=== PATIENT | female | born 1985 | race Caucasian/White ===

== ENCOUNTER 2017-11-17 06:22 | Emergency (ER) | payer MEDICAID, SELFPAY ==
[2017-11-17 06:22] VITALS: BP 121/67; PULSE 98; RESP 22; TEMP 37; O2SAT 100; BMI 24.1
--- NOTE | 2017-11-17 06:55 | US_ITS ---
STUDY: ABDOMINAL ULTRASOUND - RIGHT UPPER QUADRANT REASON FOR VISIT: Female, 31 years old. Abdominal pain TECHNIQUE: Ultrasound evaluation of the right upper quadrant was performed with real-time and static paul-scale imaging. TECHNICAL QUALITY: Adequate. COMPARISON: CT abdomen and pelvis 06/17/2012. FINDINGS: Liver: The liver measures 17.6 cm. There is normal echogenicity of the liver. The bile ducts are within normal limits. There is hepatic color flow. The direction of portal flow is hepatopetal. There is no demonstrated mass lesion. Gallbladder: The gallbladder is moderately distended with a length of 11.6 cm. Diameter of approximately 3 cm. The gallbladder wall measures 2.6 mm. There is a negative sonographic Mae's sign. There is no pericholecystic fluid. Multilevel calculi. 2 gallstones in the fundus. Another in the gallbladder neck. Common Bile Duct (C.B.D.): The common bile duct measures 6.3 mm. Pancreas: Normal size of the head, body and tail of the pancreas. There is normal echogenicity of the pancreas. There is no demonstrated pancreatic mass or cyst. Right Kidney: Normal size of the right kidney. The right kidney measures 10.0 x 5.9 x 5.1 cm. Normal renal cortex. The right cortex measures 1.2 cm. There is no demonstrated renal mass or cyst. There is no right hydronephrosis. US/Gallbladder IMPRESSION: Cholelithiasis with mild distention of the gallbladder, but without Positive Mae sign and without gallbladder wall thickening or pericholecystic fluid. Nondilated intrahepatic biliary tree and common bile duct. No evidence of choledocholithiasis. Electronically Signed: Dave Gilbert, at 8:29 EDT Tel , Service support ,
--- NOTE | 2017-11-17 06:56 | ED.VISSUMM ---
- ER Visit Summary Date of Service: 11/17/17 The patient's gallbladder ultrasound returned which shows cholelithiasis without pericholecystic fluid or gallbladder wall thickening. No ductal dilatation. Patient will be referred to general surgery. Clinical impression 1. Biliary colic This note was generated with [employer] dictation software. It may contain incorrect words, spelling, and punctuation that were not noted in review of the chart prior to signing <Humberto Quesada - Last Filed: 11/17/17 08:35> - ER Visit Summary Date of Service: 11/17/17 Chief Complaint: Abdominal pain with vomiting History of Present Illness: The patient is a 31 F who presents with abdominal pain, now with vomiting. Patient states she has been having upper abdominal pain intermittently for years, worse with spicy meals, fatty meals and stress. This morning she woke up vomiting. This is a new symptom. She denies diarrhea, fever, chest pain, shortness of breath. She does complain of right shoulder pain. No medical history. Patient does not have a primary care doctor. She smokes tobacco. No allergies. Denies . Last menstrual period was 2 days ago. Physical Examination: Vital signs: afebrile, hemodynamically stable, no hypoxia on room air General: well nourished, well developed, in no distress Skin: warm, dry, no rash, no pallor HEENT: normocephalic and atraumatic; PERRL, EOMI, moist mucous membranes Cardiovascular: regular rate and rhythm without murmurs, no peripheral edema, 2+ pulses all distal extremities Respiratory: No increased work of breathing, lungs are clear to auscultation bilaterally, no rales, rhonchi or wheezing Abdominal: Abdomen is soft, tender in epigastrium and right upper quadrant with normoactive bowel sounds, no guarding or rebound, no masses MSK: Moves all extremities, no deformities, normal strength Neuro: Awake and alert, oriented ?4. No facial droop, sensation and motor function intact and symmetric Test Results: Abnormal Lab Results 11/17/17 11/17/17 11/17/17 06:30 06:30 07:00 WBC 8.9 RBC 4.80 Hgb 14.7 Hct 44.6 MCV 92.9 MCH 30.6 MCHC 33.0 RDW 13.1 RDW Differential 44.5 H Plt Count 217 MPV 10.0 Immature Gran % (Auto) 0.100 Neut % (Auto) 66.5 Lymph % (Auto) 25.3 [place] % (Auto) 5.8 Eos % (Auto) 2.1 Baso % (Auto) 0.2 Absolute Neuts (auto) 5.9 Absolute Lymphs (auto) 2.25 Total Counted Not Reportable Sodium 140 Potassium 3.7 Chloride 107 Carbon Dioxide 28.0 Anion Gap 5 BUN 8 Creatinine 0.86 Estim Creat Clear Calc 91.33 Est GFR (MDRD) Af Amer 97 Est GFR (MDRD) Non-Af 81 BUN/Creatinine Ratio 9.3 L Glucose 101 Calcium 8.7 Total Bilirubin 0.20 AST 19 ALT 18 Alkaline Phosphatase 88 Total Protein 7.2 Albumin 3.7 Globulin 3.5 Albumin/Globulin Ratio 1.1 Lipase 531 H Urine Color Yellow Urine Clarity Clear Urine pH 6.5 Ur Specific [place] 1.010 Urine Protein Negative Urine Glucose (UA) Normal Urine Ketones Negative Urine Occult Blood 25 H Urine Nitrite Negative Urine Bilirubin Negative Urine Urobilinogen Normal Ur Leukocyte Esterase 100 H Urine RBC 0-5 SEEN Urine WBC 0-5 SEEN Ur Squamous Epith Cells 5-10 SEEN Urine Bacteria 0 SEEN Urine Mucus 0 SEEN Urine Test 11/17/17 07:00 WBC RBC Hgb Hct MCV MCH MCHC RDW RDW Differential Plt Count MPV Immature Gran % (Auto) Neut % (Auto) Lymph % (Auto) [place] % (Auto) Eos % (Auto) Baso % (Auto) Absolute Neuts (auto) Absolute Lymphs (auto) Total Counted Sodium Potassium Chloride Carbon Dioxide Anion Gap BUN Creatinine Estim Creat Clear Calc Est GFR (MDRD) Af Amer Est GFR (MDRD) Non-Af BUN/Creatinine Ratio Glucose Calcium Total Bilirubin AST ALT Alkaline Phosphatase Total Protein Albumin Globulin Albumin/Globulin Ratio Lipase Urine Color Urine Clarity Urine pH Ur Specific [place] Urine Protein Urine Glucose (UA) Urine Ketones Urine Occult Blood Urine Nitrite Urine Bilirubin Urine Urobilinogen Ur Leukocyte Esterase Urine RBC Urine WBC Ur Squamous Epith Cells Urine Bacteria Urine Mucus Urine Test Negative Emergency Department Course and Treatment: Given the epigastric and right upper quadrant pain with referred pain to the right shoulder which may indicate diaphragmatic irritation, along with the new symptom of vomiting, workup was performed to evaluate for possible cholecystitis. differential also includes biliary colic, gastritis, peptic ulcer disease, IBS, renal pathology. Labs showed no leukocytosis, negative , no electrolyte derangements. No hepatic derangements. Lipase was mildly elevated but not even twice the upper limit of normal. negative. Urinalysis negative for infection. Patient received GI cocktail and zofran for symptomatic relief. Treatment Plan: RUQ US in progress and will be f/u by day physician. Suspect pt's sx are due to biliary colic. If RUQ US shows cholecystitis, acute surg c/s will be obtained. Otherwise pt will f/u with surgery outpatient to discuss elective cholecystectomy for sx relief. Disposition: pending US results Impression: [] This note was generated with [employer] dictation software. It may contain incorrect words, spelling, and punctuation that were not noted in review of the chart prior to signing <Lidya Ojeda - Last Filed: 11/18/17 20:03> ED Disposition <Humberto Quesada - Last Filed: 11/17/17 08:35> <Lidya Ojeda - Last Filed: 11/18/17 20:03> - Plan for ED Patient: Disposition: Home or Assisted Living Chief Complaint: Abd Pain Instructions: ED Abdominal Pain Gallstone Poss Prescriptions: Ondansetron [Zofran Odt] 4 mg PO TID PRN #15 tab.rapdis PRN Reason: Nausea Referrals: Peggy Osman MD [STAFF PHYSICIAN] - As Needed (gallstones, intermittent biliary colic) Mike Velazquez DO [STAFF PHYSICIAN] - As soon as possible Care Physician,No Primary [Primary Care Provider] - Additional Instructions: Please follow up with the primary care doctor on this paperwork or with the primary care doctor of your choice to establish with a physician and for reevaluation of your abdominal pain. You may use the zofran as needed for nausea. Use over the counter pain medication of your choice to help with pain. Follow-up with the surgeon if your abdominal pain continues to discuss whether you need to have your gallbladder removed. If you have any worsening of your condition or any new concerning symptoms, please return immediately to the emergency department for another evaluation.
[2017-11-17 07:04] LABS: Bacteria 0 SEEN /hpf (None Seen); Mucous, Urine 0 SEEN /hpf (<or=2+)
[2017-11-17 07:11] LABS: Absolute Lymphocyte Count 2.25 X10^3/ul (0.83-4.51); Absolute Neutrophil Count 5.9 X10^3/uL (2.0-7.7); Basophil# 0.02 X10^3/uL; Basophil% 0.2 % (0-1); Eosinophil# 0.19 X10^3/uL; Eosinophils% 2.1 % (0-5); Hematocrit 44.6 % (37-47); Hemoglobin 14.7 g/dl (12.0-15.0); Lymphocyte # 2.25 X10^3/ul (4.0); Lymphocyte % 25.3 % (19-41); Mean Corpuscular Hgb 30.6 pg (27.0-32.0); Mean Corpuscular Volume 92.9 fL (81-99); Monocyte# 0.52 X10^3/uL; Monocyte% 5.8 % (0-10); Neutrophil # 5.92 X10^3/uL (2.7-7.7); Neutrophil % 66.5 % (47-70); Platelet Count 217 K/mm3 (150-450); RBC Distribution Width CV 13.1 % (11.6-14.6); RBC Distribution Width SD 44.5 fl (35.1-43.9); White Blood Count 8.9 K/mm3 (4.4-11.0)
[2017-11-17] MEDS: Ondansetron 4 MG/2 ML Vial IV (07:11)
[2017-11-17] MEDS: 0.9% Normal Saline 1,000 ML 1000 ML IV (07:11)
[2017-11-17 07:12] LABS: POSITIVE COUNT NO; POSITIVE DIFFERENTIAL NO; POSITIVE MORPHOLOGY NO
[2017-11-17 07:18] LABS: ALB/GLOB Ratio 1.1 RATIO (0.9-2.4); AST(SGOT) 19 U/L (15-37); Alanine Aminotransfer ALT/SGPT 18 U/L (13-56); Albumin, Serum 3.7 g/dL (3.2-5.0); Alkaline Phosphatase 88 U/L (45-117); Anion Gap 5 (5-15); BUN 8 mg/dL (7-18); BUN/Creat Ratio 9.3 RATIO (10-20); Calcium,Total 8.7 mg/dL (8.5-10.1); Chloride 107 mmol/L (98-107); Creatinine, Serum 0.86 mg/dL (0.55-1.02); EST Glomerular Filtration Rate 81 mL/min (>60); Est Glom Filt Rate - Afr Amer 97 mL/min (>60); Estimated Creatinine Clearance 91.33 ml/min; Globulin 3.5 g/dL (2.2-4.2); Glucose 101 mg/dL (74-106); Lipase 531 U/L (73-393); Potassium 3.7 mmol/L (3.5-5.1); Protein, Total 7.2 g/dL (6.4-8.2); Sodium Level 140 mmol/L (136-145)
[2017-11-17 07:21] LABS: Color, Urine Yellow (Yellow); Glucose, Dipstick Normal (Normal); Ketone-Dipstick Negative (Negative); Leukocyte Esterase-Dipstick 100 /ul (Negative); Nitrite-Dipstick Negative (Negative); Occult Blood-Urine 25 /ul (Negative); Protein-Dipstick Negative (Negative); Urine Bilirubin Dipstick Negative (Negative); Urine Clarity Clear (Clear); Urine Urobilinogen Normal (Normal); Urine pH 6.5 (5.0 - 8.0)
[2017-11-17 07:31] LABS: Internal QC Validated? YES +Cl - CLEAR BKGD; Pregnancy, Urine Negative Negative
[2017-11-17 07:48] LABS: Red Blood Cells-Urine 0-5 SEEN /hpf (0-5); Squamous Epithelial Cells - UA 5-10 SEEN /hpf (5-10); White Blood Cells 0-5 SEEN /hpf (0-5)
--- NOTE | 2017-11-17 08:04 | ED.DEP ---
ED Disposition - Plan for ED Patient: Disposition: Home or Assisted Living Chief Complaint: Abd Pain Instructions: ED Abdominal Pain Gallstone Poss Prescriptions: Ondansetron [Zofran Odt] 4 mg PO TID PRN #15 tab.rapdis PRN Reason: Nausea Referrals: Mike Velazquez DO [STAFF PHYSICIAN] - As soon as possible Care Physician,No Primary [Primary Care Provider] - Peggy Osman MD [STAFF PHYSICIAN] - As Needed (gallstones, intermittent biliary colic) Additional Instructions: Please follow up with the primary care doctor on this paperwork or with the primary care doctor of your choice to establish with a physician and for reevaluation of your abdominal pain. You may use the zofran as needed for nausea. Use over the counter pain medication of your choice to help with pain. Follow-up with the surgeon if your abdominal pain continues to discuss whether you need to have your gallbladder removed. If you have any worsening of your condition or any new concerning symptoms, please return immediately to the emergency department for another evaluation.
[2017-11-17 08:31] VITALS: BP 121/74; PULSE 74; RESP 18; O2SAT 100
[2017-11-17 08:40] VITALS: BP 109/77; PULSE 62; RESP 15; O2SAT 98
== END 2017-11-17 08:40 | disposition home or self-care (01) ==
PROVIDERS: Emergency Provider Emergency Medicine
DX: K80.50 Calculus of bile duct without cholangitis or cholecystitis without obstruction (principal); F17.200 Nicotine dependence, unspecified, uncomplicated
CPT/HCPCS: 76705; 80053; 81001; 81025; 83690; 85025; 96361; 96374; 99284; J7030; A4216; J2405

== ENCOUNTER 2021-11-03 10:25 | Emergency (ER) | payer OTHER, MEDICAID, SELFPAY ==
[2021-11-03 10:25] VITALS: BP 139/74; PULSE 108; RESP 18; TEMP 36.2; O2SAT 99; BMI 27.9
--- NOTE | 2021-11-03 11:22 | EDS_ITS ---
HPI History of Present Illness Chief Complaint: Chest Pain Informant: patient Onset/Context/Timing Onset: Today Activity at onset: gradual Timing: Continuous Quality: Positive for Sharp Location: Right Chest and Left Chest Worsened By: Nothing Relieved By: Nothing Associated Symptoms: Negative for Nausea, Vomiting, Diaphoresis, Dyspnea, Cough, Fever, Lightheadedness, Acid Reflux or Palpitations Narrative Narrative: Patient presents with chest pain that began today. Patient states that when she woke up today she felt tightness in her chest. Patient states it was over the left lower chest. Patient states that now it is radiating across to the right side of her chest as well. Patient describes her pain as sharp. Patient states nothing makes it better nothing makes it worse. Patient denies any nausea or vomiting. Patient denies any diaphoresis. Patient denies any shortness of breath. Patient denies any other symptoms. Patient is a smoker but denies any other cardiac or PE risk factors. [facility] Medical History (Updated 11/03/21 @ 14:[address] Omar Dolan DO) Cholecystectomy planned Ectopic Tubal occlusion Home Medications NK 11/03/21 [History Last Taken Unknown] Allergy/AdvReac Type Severity Reaction Status Date / Time No Known Allergies Allergy Verified 11/03/21 10:30 Surgical History (Updated 11/03/21 @ 11:[address] Omar Dolan DO) Hx of cholecystectomy Hx of tubal ligation Social History Smoking Status: Current every day smoker tobacco type: cigarettes ROS ROS ED Constitutional Constitutional ED: Denies chills or fever(s) Eyes Eyes: Denies blurry vision or change in vision ENT ENT ED: Denies rhinorrhea or sore throat Cardiovascular Cardiovascular: Reports chest pain; Denies palpitations Respiratory/Chest Respiratory/Chest: Denies cough or dyspnea Gastrointestinal Gastrointestinal: Denies abdominal pain, nausea or vomiting Genitourinary Genitourinary ED: Denies dysuria or hematuria Musculoskeletal Musculoskeletal: Denies back pain or neck pain Integumentary Denies abscess or rash Neurologic Neurologic: Denies headache(s) or weakness Allergic/Immunologic Allergic/Immunologic ED: Denies mouth swelling or urticaria EXAM Physical Exam Const Vital Signs: 11/03/21 10:25 11/03/21 11:01 11/03/21 11:33 Temperature 97.1 F L Temperature Source Temporal Pulse Rate 108 H Respiratory Rate 18 Respiratory Effort Normal Blood Pressure 139/74 H Blood Pressure Mean 95 Pulse Ox 99 97 Oxygen Delivery Method Room Air Room Air 11/03/21 12:22 11/03/21 13:52 11/03/21 14:01 Temperature Temperature Source Pulse Rate 60 78 83 Respiratory Rate 16 15 16 Respiratory Effort Blood Pressure 110/73 108/61 122/99 H Blood Pressure Mean 85 76 106 Pulse Ox 97 98 98 Oxygen Delivery Method Room Air Room Air Room Air Positive well nourished and well developed General Appearance ED: well developed and NAD HEENT normocephalic and atraumatic Eyes PERRL and EOMs intact bilaterally Neck supple and no JVD Chest Wall palpation of chest normal Resp normal respiratory effort and clear to auscultation bilaterally Effort and Inspection: Negative for respiratory distress Cardio regular rate, regular rhythm and no murmurs GI normal to inspection, nondistended, normoactive bowel sounds, soft to palpation, non-tender and non-distended Extremity normal to inspection General Extremety ED: Negative for edema or tenderness General Extremity: Negative for edema Neuro oriented x3, CN's II-XII intact bilaterally and no sensory deficits noted Sensorium / Orientation: awake and alert Motor Exam: strength 5/5 throughout Psych mental status grossly normal MDM MDM MDM Narrative Medical decision making narrative: Patient was given aspirin here. EKG was obtained. On my interpretation, it showed a normal sinus rhythm with a rate of 87. WI interval, QRS interval, and QTc intervals were all normal. Sabael was normal. There are no acute ST or T wave changes. CBC shows mild leukocytosis of 15.2. Basic metabolic profile showed a potassium of 2.8 but was otherwise within normal limits. High- sensitivity troponin was less than 3. Portable 1 view chest x-ray was obtained. On my interpretation, lung maldonado are clear. There is normal cardiac silhouette. Bony thorax is normal. There is no acute process noted. Radiologist also interpreted the x-ray and agrees. 2-hour repeat high- sensitivity troponin was also less than 3. Patient was given a dose of potassium here. Patient was given a referral for primary care physician for follow-up care in 5 to 7 days. Patient understood and was agreeable with the plan. All questions were answered. Lab Data Attestation: I reviewed the patient's lab results. Labs: Laboratory Results - last 24 hr 11/03/21 11/03/21 11/03/21 10:23 10:23 13:59 WBC 15.2 H RBC 4.98 Hgb 14.7 Hct 43.9 MCV 88.2 MCH 29.5 MCHC 33.5 RDW Std Deviation 44.4 H RDW Coeff of Faith 13.9 Plt Count 360 MPV 10.6 Immature Gran % (Auto) 0.400 Neut % (Auto) 70.5 H Lymph % (Auto) 23.1 [place] % (Auto) 4.4 Eos % (Auto) 1.1 Baso % (Auto) 0.5 Absolute Neuts (auto) 10.7 H Absolute Lymphs (auto) 3.51 Nucleated RBC % 0 Sodium 138 Potassium 2.8 L Chloride 102 Carbon Dioxide 29.0 Anion Gap 7 BUN 4 L Creatinine 0.85 Estim Creat Clear Calc 88.98 Est GFR (MDRD) Af Amer 97 Est GFR (MDRD) Non-Af 80 BUN/Creatinine Ratio 4.7 L Glucose 123 H Calcium 9.3 Troponin I High Sens < 3 L < 3 L Radiography Chest X-Ray - ED: 1 View, Read by ED Physician, Read by Radiologist, Normal and No Acute Disease Diagnostic Testing: Clinical Impression(s) from Imaging Studies Chest X-Ray 11/03/21 11:34 IMPRESSION: Normal x-ray examination of the chest. Electronically Signed: Dave Cunningham MD at 12:34 EDT , Discharge Plan Triage Chief Complaint: Chest Pain ED Provider: Omar Dolan Dx/Rx/DC Orders Clinical Impression: Chest pain, Hypokalemia Instructions: ED Chest Pain, Uncertain Cause, ED Hypokalemia Prescriptions: No Action NK Primary Care Provider: Care Physician,No Primary Referrals: Gina Barr MD [STAFF PHYSICIAN] - 5-7 Days Care Physician,No Primary [Primary Care Provider] - Disposition Disposition: Home, Self Care
--- NOTE | 2021-11-03 11:25 | EKG12_ITS ---
Test Reason : CP Blood Pressure : / mmHG Vent. Rate : 087 BPM Atrial Rate : 087 BPM P-R Int : 138 ms QRS Dur : 082 ms QT Int : 372 ms P-R-T Axes : 073 070 038 degrees QTc Int : 447 ms Normal sinus rhythm with sinus arrhythmia Nonspecific ST abnormality Abnormal ECG Confirmed by KOREY MILLER, ONEYDA ([id number]), medical transcription editor MYRIAM LY ([id number]) on 11/05/2021 10:21:02 AM Referred By: LARRY Confirmed By:ONEYDA NAIR MD
[2021-11-03 11:33] VITALS: O2SAT 97
--- NOTE | 2021-11-03 11:34 | RAD_ITS ---
STUDY: X-RAY CHEST REASON FOR EXAM: Female, 35 years old. chest pain TECHNIQUE: Single AP portable view of the chest. COMPARISON: None. FINDINGS: The lungs are clear and expanded. There is no demonstrated pleural abnormality. Normal size heart. Normal mediastinum and leslie. Normal visualized pulmonary arteries. Normal visualized aortic arch and descending thoracic aorta. Normal visualized thoracic spine. Normal visualized ribs, clavicles, and shoulders. There is no demonstrated abnormality of the visualized soft tissue structures of the upper abdomen. RAD/Chest 1 View (Portable) IMPRESSION: Normal x-ray examination of the chest. Electronically Signed: Dave Cunningham MD at 12:34 EDT ,
[2021-11-03 12:05] LABS: Absolute Lymphocyte Count 3.51 X10^3/uL (0.83-4.51); Absolute Neutrophil Count 10.7 X10^3/uL (2.0-7.7); Basophil# 0.07 X10^3/uL; Basophil% 0.5 % (0-1); Eosinophil# 0.17 X10^3/uL; Eosinophils% 1.1 % (0-5); Hematocrit 43.9 % (37-47); Hemoglobin 14.7 g/dL (12.0-15.0); Lymphocyte # 3.51 X10^3/ul (0.83-4.51); Lymphocyte % 23.1 % (19-41); Mean Corp Hgb Conc 33.5 g/dL (32-36); Mean Corpuscular Hgb 29.5 pg (27.0-32.0); Mean Corpuscular Volume 88.2 fL (81-99); Mean Platelet Vol. 10.6 fl (6.2-12.0); Monocyte# 0.67 X10^3/uL; Monocyte% 4.4 % (0-10); NRBC Flagged by Analyzer 0 % (0-5); Neutrophil # 10.74 X10^3/uL (2.7-7.7); Neutrophil % 70.5 % (47-70); Platelet Count 360 K/mm3 (150-450); RBC Distribution Width CV 13.9 % (11.6-14.6); RBC Distribution Width SD 44.4 fl (35.1-43.9); Red Blood Count 4.98 M/mm3 (4.2-5.4); White Blood Count 15.2 K/mm3 (4.4-11.0)
[2021-11-03 12:07] LABS: Anion Gap 7 (5-15); BUN 4 mg/dL (7-18); BUN/Creat Ratio 4.7 RATIO (10-20); Calcium,Total 9.3 mg/dL (8.5-10.1); Chloride 102 mmol/L (98-107); Creatinine, Serum 0.85 mg/dL (0.55-1.02); EST Glomerular Filtration Rate 80 mL/min (>60); Est Glom Filt Rate - Afr Amer 97 mL/min (>60); Estimated Creatinine Clearance 88.98 ml/min; Glucose 123 mg/dL (74-106); Potassium 2.8 mmol/L (3.5-5.1); Sodium Level 138 mmol/L (136-145); Troponin-I HS (w/2H Reflex) < 3 pg/mL (3.0-54.0)
[2021-11-03 12:22] VITALS: BP 110/73; PULSE 60; RESP 16; O2SAT 97
[2021-11-03 13:37] LABS: Reflex Troponin-HS? (from REC) Y
[2021-11-03 13:52] VITALS: BP 108/61; PULSE 78; RESP 15; O2SAT 98
[2021-11-03 14:01] VITALS: BP 122/99; PULSE 83; RESP 16; O2SAT 98
[2021-11-03 14:25] LABS: Troponin-I HS < 3 pg/mL (3.0-54.0)
--- NOTE | 2021-11-03 15:00 | CM.ED ---
Social Work Note Reason for Referral: No PCP SW reviewed chart, pt has no PCP listed. SW in to speak with pt. Pt confirms she has no PCP. SW provided pt with PCP list. Stacey Zamora HITCHER, [employer]
[2021-11-03 15:06] VITALS: BP 118/64; PULSE 84; RESP 16; O2SAT 99
[2021-11-03] MEDS: Potassium Chloride Oral Tablet 20 MEQ 40 MEQ PO (15:08)
== END 2021-11-03 15:10 | disposition home or self-care (01) ==
PROVIDERS: Emergency Provider Emergency Medicine; Visit Provider Emergency Medicine
DX: R07.9 Chest pain, unspecified (principal); E87.6 Hypokalemia; F17.210 Nicotine dependence, cigarettes, uncomplicated
CPT/HCPCS: 71045; 80048; 84484; 85025; 93005; 99284

== ENCOUNTER 2023-11-25 12:06 | Emergency (ER) | payer MEDICAID, SELFPAY ==
[2023-11-25 12:07] VITALS: BP 124/81; PULSE 78; RESP 16; TEMP 36; O2SAT 99; BMI 23.6
--- NOTE | 2023-11-25 12:19 | EX.ED.DYSGE1 ---
HPI <HATTIE Perry - Last Filed: 11/25/23 14:22> History of Present Illness Chief Complaint: Abd Pain Narrative Narrative: Patient is a 37-year-old female with no significant medical history, patient does smoke 1 pack/day, presenting to emergency department 2 days of worsening pain to her right lower quadrant. Patient dates that she noticed the pain yesterday, she is noticed it was kind of achy, she thought it was gas. Today the pain is more sharp in nature, she states it goes midline to the umbilical area. Patient states she does have diarrhea, some nausea however no vomiting. Patient past surgical history is tubal ligation as well as cholecystectomy PFSH <HATTIE Perry - Last Filed: 11/25/23 14:22> [facility] Medical History (Updated 11/25/23 @ 14:20 by HATTIE Perry) Cholecystectomy planned Tubal occlusion Ectopic Home Medications ?Medication ?Instructions ?Recorded ?Last Taken ?Type amoxicillin 875 mg-potassium 1 tab PO BID #20 tabs 11/25/23 Unknown Rx clavulanate 125 mg tablet ondansetron 4 mg disintegrating 4 mg PO Q8H PRN PRN Nausea #10 tabs 11/25/23 Unknown Rx tablet oxycodone-acetaminophen 5 mg-325 1 tab PO Q8H PRN pain 3 days #8 11/25/23 Unknown Rx mg tablet (Percocet) tabs Allergy/AdvReac Type Severity Reaction Status Date / Time No Known Allergies Allergy Verified 11/25/23 12:08 Surgical History (Updated 11/03/21 @ 11:[address] Omar Dolan, DO) Hx of tubal ligation Hx of cholecystectomy Social History Smoking Status: Current every day smoker tobacco type: cigarettes ROS <HATTIE Perry - Last Filed: 11/25/23 14:22> ROS ED ROS Narrative Constitutional: Negative for fever, chills, weight loss, weakness Eyes: Negative for vision loss, vision change, double vision ENT: Negative for any sore throat, ear pain, congestion Cardiovascular: Negative for any chest pain, tightness, palpitations Respiratory: Negative for any cough, sputum production, hemoptysis, dyspnea, dyspnea on exertion, orthopnea Gastrointestinal: Negative for any vomiting, constipation, blood in stool, blood in vomit. Positive for right lower quadrant abdominal pain, nausea, diarrhea : Negative for any urinary frequency, dysuria, retention, blood in urine Muscle skeletal: Negative for any neck pain, back pain Neurological: Negative for any headache, syncope, dizziness Skin: Negative for any rashes, itching, abrasions, lacerations Psychiatric: Negative for any depression, anxiety, stress, suicidal ideation, homicidal ideation Hematologic: Negative for any excessive bruising, easy bleeding EXAM <SEBASTIEN PerryC - Last Filed: 11/25/23 14:22> Physical Exam Narrative Exam Narrative: Vital signs reviewed. Patient does appear to be uncomfortable. HEET: Head normocephalic atraumatic, TMs clear bilaterally. Posterior pharynx is clear, moist mucous membranes. Nares clear bilaterally. Neck: Supple with no lymphadenopathy or tenderness. No signs of meningismus. Cardiac: Regular rate and rhythm no murmurs gallops or rubs, equal peripheral pulses bilaterally. Respiratory: Lungs clear to auscultation bilaterally. No chest tenderness. Abdomen: Soft,nondistended. No abdominal bruit or pulsatile masses. No hepatosplenomegaly. Patient does have some tenderness to the right lower quadrant, just below the umbilicus. Active bowel sounds in all quadrants. No peritoneal signs. Extremities: No peripheral edema, no signs of gross trauma or deformity. Active full range of motion of all extremities. Neuro: Cranial nerves II through XII intact, no focal neurological deficits. Skin: Clean dry and intact with no rash, purpura, petechiae, vesicles or pustules. Backs/flank: No CVA tenderness, no midline spinal tenderness, no deformity. Psych: Normal mood and affect. No SI, HI or acute psychosis. Const Vital Signs: 11/25/23 12:07 11/25/23 14:06 11/25/23 14:34 Temperature 96.8 F L 96.8 F L Temperature Source Temporal Pulse Rate 78 62 62 Respiratory Rate 16 16 16 Blood Pressure 124/81 H 104/59 L 104/59 L Blood Pressure Mean 95 74 74 Pulse Ox 99 99 100 Oxygen Delivery Method Room Air Room Air Positive well nourished and well developed General Appearance ED: well developed <Dr. Omar Dolan DO - Last Filed: 11/25/23 19:39> Physical Exam Const Vital Signs: 11/25/23 12:07 11/25/23 14:06 11/25/23 14:34 Temperature 96.8 F L 96.8 F L Temperature Source Temporal Pulse Rate 78 62 62 Respiratory Rate 16 16 16 Blood Pressure 124/81 H 104/59 L 104/59 L Blood Pressure Mean 95 74 74 Pulse Ox 99 99 100 Oxygen Delivery Method Room Air Room Air [facility] <Yash Aquino HATTIE - Last Filed: 11/25/23 14:22> [facility] Lab Data Labs: Laboratory Results - last 24 hr 11/25/23 11/25/23 12:30 13:20 WBC 15.0 H RBC 4.35 Hgb 12.6 Hct 37.6 MCV 86.4 MCH 29.0 MCHC 33.5 RDW Std Deviation 42.5 RDW Coeff of Faith 13.4 Plt Count 276 MPV 9.3 Immature Gran % (Auto) 0.700 Neut % (Auto) 71.3 H Lymph % (Auto) 21.8 Haines % (Auto) 4.7 Eos % (Auto) 1.1 Baso % (Auto) 0.4 Absolute Neuts (auto) 10.7 H Absolute Lymphs (auto) 3.27 Nucleated RBC % 0 Sodium 139 Potassium 2.9 L Chloride 106 Carbon Dioxide 29.0 Anion Gap 4 L BUN 3 L Creatinine 0.72 Estim Creat Clear Calc 103.02 Est GFR (MDRD) Af Amer 115 Est GFR (MDRD) Non-Af 95 BUN/Creatinine Ratio 4.1 L Glucose 117 H Calcium 8.8 Total Bilirubin 0.20 AST 17 ALT 15 Alkaline Phosphatase 100 Total Protein 6.8 Albumin 3.3 Globulin 3.5 Albumin/Globulin Ratio 0.9 Lipase 42 Serum , Qual NEGATIVE Urine Color Straw Urine Clarity Clear Urine pH 7.0 Ur Specific [place] 1.005 Urine Protein Negative Urine Glucose (UA) Normal Urine Ketones Negative Urine Occult Blood Negative Urine Nitrite Negative Urine Bilirubin Negative Urine Urobilinogen Normal Ur Leukocyte Esterase Negative Urine RBC 0 SEEN Urine WBC 0 SEEN Ur Squamous Epith Cells 0 SEEN Urine Bacteria 0 SEEN Urine Mucus 0 SEEN Radiography Diagnostic Testing: Clinical Impression(s) from Imaging Studies Abdomen/Pelvis CT 11/25/23 13:06 IMPRESSION: Findings in keeping with a pancolitis. Electronically Signed: Kelby De Leon MD at 13:23 EDT , Treatment and Re-Evaluation :: Differential diagnosis includes however is not limited to: Acute appendicitis, ileus, ovarian cyst, diverticulitis, colitis Patient appears to be in mild distress secondary to pain in the right lower quadrant, patient's vital signs are stable, she does appear nontoxic. Patient's last menstrual cycle was just finished, patient does have a tubal ligation. Low concern for . Patient will receive a full abdominal workup including CBC CMP lipase as well as IV fluids, IV Zofran and Toradol. This is only because the patient did drive here, if the pain medicine is not adequate, she will ask and I will give the patient morphine. She will just need to get a ride home. Patient will receive a CT scan of the abdomen pelvis with IV contrast to rule out any surgical emergency. All radiologic examinations were read, reviewed by the emergency department attending. From these reads, a plan of care will be put in place. Patient will be reevaluated. On reevaluation, the patient was feeling improved. Patient's laboratory values did show a leukocytosis with a white blood count of 15, patient's chemistries did show hypokalemia with a potassium of 2.9, kidney function within normal limits. Patient's serum was negative. Urinalysis was negative for any infection. Patient's abdominal CT shows findings in keeping with pancolitis. The appendix was normal. At this time, patient will be given oral supplement of potassium, patient restarted Augmentin, nausea medicine for home as well as some pain medicine. She is instructed to follow-up outpatient. She is happy with the plan of care, she was given strict return precaution. Stable for discharge. <Dr. Omar Dolan, DO - Last Filed: 11/25/23 19:39> [facility] Narrative Medical decision making narrative: I have personally performed a face to face assessment of the patient and have reviewed the SUSANNE Note. I performed a substantive portion of the visit including all aspects of the following. My mcelroy findings include: History: Patient presents with abdominal pain that began yesterday. Patient states it has gradually gotten worse. Patient states her pain is mainly over the right lower abdomen. Patient states it is better when she pushes on her lower abdomen. Patient states nothing makes it worse. Patient admits to some nausea but denies any vomiting. Patient admits to some diarrhea. Patient states her last menstrual period was approximately 1 week ago. Patient denies any urinary complaints. Exam: Vital signs are stable. Patient is afebrile. Patient is in no acute distress. Oral mucosa is pink and moist. Neck is supple. Trachea is midline. There is no JVD. Heart was regular rate and rhythm. Lungs are clear and equal bilaterally. Abdomen is soft. Bowel sounds are normal. There is diffuse tenderness but worse in the right lower abdomen. There is no rebound or guarding noted. There is negative heel strike noted. There is no psoas or obturator sign. Medical Decision Making: Differential diagnosis includes gastroenteritis, appendicitis, ovarian cyst, urinary tract infection, ureteral calculus, pyelonephritis, pancreatitis, and dehydration. CBC will be obtained to assess for leukocytosis and anemia. Comprehensive metabolic profile will be obtained to assess for hepatic function, renal function, and electrolyte abnormality. Lipase will be obtained to assess for pancreatitis. Serum hCG will be obtained to assess for . Urinalysis will be obtained to assess for urinary tract infection and hematuria. CT scan of the abdomen pelvis will be obtained to assess for appendicitis and ureteral calculus. Patient was given IV fluids, Toradol, and Zofran. CBC was reviewed. There is a mild leukocytosis of 15.0. The remainder is within normal limits. Comprehensive metabolic profile was reviewed. Potassium was low at 2.9. The remainder was within normal limits. Serum hCG was reviewed and was negative. Lipase was reviewed and was normal at 42. Urinalysis was reviewed. There is no evidence of urinary tract infection or hematuria. CT scan of the abdomen pelvis was obtained. There is pancolitis noted. There is no evidence of appendicitis. There is no bowel obstruction or perforation noted. This was interpreted by the radiologist was also independently reviewed by myself. Patient was given a dose of potassium here. Patient was given a dose of Augmentin here. Patient was given a prescription for Augmentin. Patient was instructed to follow-up with her primary care physician in 5 to 7 days. Patient understood and was agreeable with the plan. All questions were answered. Lab Data Attestation: I reviewed the patient's lab results. Labs: Laboratory Results - last 24 hr 11/25/23 11/25/23 12:30 13:20 WBC 15.0 H RBC 4.35 Hgb 12.6 Hct 37.6 MCV 86.4 MCH 29.0 MCHC 33.5 RDW Std Deviation 42.5 RDW Coeff of Faith 13.4 Plt Count 276 MPV 9.3 Immature Gran % (Auto) 0.700 Neut % (Auto) 71.3 H Lymph % (Auto) 21.8 Haines % (Auto) 4.7 Eos % (Auto) 1.1 Baso % (Auto) 0.4 Absolute Neuts (auto) 10.7 H Absolute Lymphs (auto) 3.27 Nucleated RBC % 0 Sodium 139 Potassium 2.9 L Chloride 106 Carbon Dioxide 29.0 Anion Gap 4 L BUN 3 L Creatinine 0.72 Estim Creat Clear Calc 103.02 Est GFR (MDRD) Af Amer 115 Est GFR (MDRD) Non-Af 95 BUN/Creatinine Ratio 4.1 L Glucose 117 H Calcium 8.8 Total Bilirubin 0.20 AST 17 ALT 15 Alkaline Phosphatase 100 Total Protein 6.8 Albumin 3.3 Globulin 3.5 Albumin/Globulin Ratio 0.9 Lipase 42 Serum , Qual NEGATIVE Urine Color Straw Urine Clarity Clear Urine pH 7.0 Ur Specific [place] 1.005 Urine Protein Negative Urine Glucose (UA) Normal Urine Ketones Negative Urine Occult Blood Negative Urine Nitrite Negative Urine Bilirubin Negative Urine Urobilinogen Normal Ur Leukocyte Esterase Negative Urine RBC 0 SEEN Urine WBC 0 SEEN Ur Squamous Epith Cells 0 SEEN Urine Bacteria 0 SEEN Urine Mucus 0 SEEN Radiography Diagnostic Testing: Clinical Impression(s) from Imaging Studies Abdomen/Pelvis CT 11/25/23 13:06 IMPRESSION: Findings in keeping with a pancolitis. Electronically Signed: Kelby De Leon MD at 13:23 EDT , Discharge Plan Triage Chief Complaint: Abd Pain ED Midlevel Provider: Yash Aquino ED Provider: Omar Dolan Dx/Rx/DC Orders Clinical Impression: Abdominal pain, Pancolitis Instructions: Abdominal Pain, Ulcerative Colitis Dc, How the Colon Works Prescriptions: New amoxicillin-pot clavulanate 875-125 mg tablet 1 tab PO BID Qty: 20 0RF oxycodone-acetaminophen [Percocet] 5-325 mg tablet 1 tab PO Q8H PRN (Reason: pain) 3 Days Qty: 8 0RF ondansetron 4 mg tablet,disintegrating 4 mg PO Q8H PRN PRN (Reason: Nausea) Qty: 10 0RF Primary Care Provider: Care Physician,No Primary Referrals: Care Physician,No Primary [Primary Care Provider] - Activity Restrictions/Additional Instructions: Ensure that you take some potassium supplements. Eat a balanced diet. Take the antibiotics until finished. The nausea medicine and pain medicine is as needed. Return for worsening symptoms. Print Language: Congolese Disposition Disposition: Home, Self Care Discharge Date/Time: 11/25/23 14:40
[2023-11-25] MEDS: 0.9% Normal Saline (1000mL) 1,000 ML 999 ML IV (12:36)
[2023-11-25] MEDS: Ketorolac 15 MG/ML Vial IV (12:36)
[2023-11-25] MEDS: Ondansetron 4 MG/2 ML Vial IV (12:37)
[2023-11-25 12:41] LABS: Absolute Lymphocyte Count 3.27 X10^3/uL (0.83-4.51); Absolute Neutrophil Count 10.7 X10^3/uL (2.0-7.7); Basophil# 0.06 X10^3/uL; Basophil% 0.4 % (0-1); Eosinophil# 0.16 X10^3/uL; Eosinophils% 1.1 % (0-5); Hematocrit 37.6 % (37-47); Hemoglobin 12.6 g/dL (12.0-15.0); Lymphocyte # 3.27 X10^3/ul (0.83-4.51); Lymphocyte % 21.8 % (19-41); Mean Corp Hgb Conc 33.5 g/dL (32-36); Mean Corpuscular Volume 86.4 fL (81-99); Mean Platelet Vol. 9.3 fl (6.2-12.0); Monocyte% 4.7 % (0-10); NRBC Flagged by Analyzer 0 % (0-5); Neutrophil # 10.67 X10^3/uL (2.7-7.7); Neutrophil % 71.3 % (47-70); Platelet Count 276 K/mm3 (150-450); RBC Distribution Width CV 13.4 % (11.6-14.6); RBC Distribution Width SD 42.5 fl (35.1-43.9); Red Blood Count 4.35 M/mm3 (4.2-5.4)
[2023-11-25 13:06] LABS: ALB/GLOB Ratio 0.9 RATIO (0.9-2.4); AST(SGOT) 17 U/L (15-37); Alanine Aminotransfer ALT/SGPT 15 U/L (13-56); Albumin, Serum 3.3 g/dL (3.2-5.0); Alkaline Phosphatase 100 U/L (45-117); Anion Gap 4 (5-15); BUN 3 mg/dL (7-18); BUN/Creat Ratio 4.1 RATIO (10-20); Calcium,Total 8.8 mg/dL (8.5-10.1); Chloride 106 mmol/L (98-107); Creatinine, Serum 0.72 mg/dL (0.55-1.02); EST Glomerular Filtration Rate 95 mL/min (>60); Est Glom Filt Rate - Afr Amer 115 mL/min (>60); Estimated Creatinine Clearance 103.02 ml/min; Globulin 3.5 g/dL (2.2-4.2); Glucose 117 mg/dL (74-106); Lipase 42 U/L (13-75); Potassium 2.9 mmol/L (3.5-5.1); Protein, Total 6.8 g/dL (6.4-8.2); Sodium Level 139 mmol/L (136-145)
--- NOTE | 2023-11-25 13:06 | CT_ITS ---
STUDY: CT ABDOMEN AND PELVIS WITH CONTRAST REASON FOR EXAM: Female, 37 years old. RLQ abdominal pain RADIATION DOSAGE (If Supplied By Facility): CTDIvol = ( 11.34 ) mGy, DLP = ( 660.68 ) mGycm TECHNIQUE: Transaxial images were obtained from the dome of the diaphragm to the symphysis pubis without oral contrast. IV 100mL Isovue-300 was administered. Sagittal and coronal images were reconstructed. Individualized dose optimization techniques were used for this CT. COMPARISON: Comparison is made with prior study of June 17, 2012. FINDINGS: The visualized lung bases are unremarkable. The visualized portions of the heart are within normal limits. Normal liver. The patient is status post cholecystectomy. Normal spleen. Normal pancreas. Normal bilateral adrenal glands. Normal right kidney. Normal left kidney. Normal visualized stomach. Normal small intestine. There is evidence of a pancolitis. The appendix is visualized and appears normal. There is minimal atherosclerotic calcification of the abdominal aorta, without a demonstrated aneurysm. Normal inferior vena cava. There is a small retroperitoneal lymphadenopathy with enlarged nodes no greater than 10mm in the short axis diameter. Normal urinary bladder. Follicle seen in the right ovary. Normal abdominal wall. Normal osseous structures. CT/Abdomen/Pelvis W IV Cont ONLY IMPRESSION: Findings in keeping with a pancolitis. Electronically Signed: Kelby De Leon MD at 13:23 EDT ,
[2023-11-25 13:12] LABS: Internal QC Validated? YES +Cl - CLEAR BKGD; Pregnancy, Serum, hCG Quali. NEGATIVE Negative; Record Kit Lot#, Serum Preg. HCG0000772476
[2023-11-25 13:24] LABS: Bacteria 0 SEEN /hpf (None Seen); Mucous, Urine 0 SEEN /hpf (<or=2+); Red Blood Cells-Urine 0 SEEN /hpf (0-5); Squamous Epithelial Cells - UA 0 SEEN /hpf (5-10); White Blood Cells 0 SEEN /hpf (0-5)
--- NOTE | 2023-11-25 13:32 | EKG12_ITS ---
Test Reason : ABD PAIN Blood Pressure : / mmHG Vent. Rate : 066 BPM Atrial Rate : 066 BPM P-R Int : 142 ms QRS Dur : 078 ms QT Int : 408 ms P-R-T Axes : 046 057 044 degrees QTc Int : 427 ms Normal sinus rhythm Normal ECG When compared with ECG of 03-NOV-2021 10:29, No significant change was found Confirmed by PAULETTE MILLER, NIURKA ([id number]), associate editor MYRIAM LY ([id number]) on 12/01/2023 10:46:22 A M Referred By: Confirmed By:GISSELLE CALDWELL MD
[2023-11-25 13:34] LABS: Color, Urine Straw (Yellow); Glucose, Dipstick Normal (Normal); Ketone-Dipstick Negative (Negative); Leukocyte Esterase-Dipstick Negative /ul (Negative); Nitrite-Dipstick Negative (Negative); Occult Blood-Urine Negative /ul (Negative); Protein-Dipstick Negative (Negative); Specific Gravity, Urine 1.005 (1.002-1.030); Urine Bilirubin Dipstick Negative (Negative); Urine Clarity Clear (Clear); Urine Urobilinogen Normal (Normal)
[2023-11-25 14:06] VITALS: BP 104/59; PULSE 62; RESP 16; O2SAT 99
[2023-11-25 14:34] VITALS: BP 104/59; PULSE 62; RESP 16; TEMP 36; O2SAT 100
[2023-11-25] MEDS: Amox/Clavulanate 875 MG Tablet PO (14:35)
[2023-11-25] MEDS: Potassium Chloride Oral Tablet 20 MEQ 40 MEQ PO (14:35)
== END 2023-11-25 14:40 | disposition home or self-care (01) ==
PROVIDERS: Nurse Practitioner; Emergency Provider Emergency Medicine; Visit Provider Emergency Medicine
DX: K51.00 Ulcerative (chronic) pancolitis without complications (principal); E87.6 Hypokalemia; F17.210 Nicotine dependence, cigarettes, uncomplicated
CPT/HCPCS: 74177; 80053; 81001; 83690; 84703; 85025; 93005; 96361; 96374; 96375; 99284; J7030; Q9967; A4216; J2405